=== PATIENT | male | born 1965 | race Caucasian/White ===

== ENCOUNTER 2019-07-07 18:32 | Emergency (ER) | payer BC, OTHER ==
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
[2019-07-07 19:18] LABS: BLOOD UREA NITROGEN,BUN 18 mg/dL (7.0-18.0); CARBON DIOXIDE,CO2 27.7 mmol/L (21.0-32.0); CHLORIDE,CL 103 mmol/L (98-107); GLUCOSE RANDOM 117 mg/dL (74-106); POTASSIUM,K 3.7 mmol/L (3.5-5.1); SODIUM,NA 139 mmol/L (136-148)
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
[2019-07-08 00:01] VITALS: BP 142/95; PULSE 80
== END 2019-07-07 20:40 | disposition home or self-care (01) ==
LOC: MW.ED 18:32
DX: S09.90XA Unspecified injury of head, initial encounter (principal); S00.81XA Abrasion of other part of head, initial encounter; S29.9XXA Unspecified injury of thorax, initial encounter; V43.92XA Unspecified car occupant injured in collision with other type car in traffic accident, initial encounter; Y92.410 Unspecified street and highway as the place of occurrence of the external cause
CPT/HCPCS: 70450; 70450-26; 71101-26-LT; 71101-LT; 72125; 72125-26; 80053; 81003; 84484; 85025; 85610; 93005; 99284-25

== ENCOUNTER 2019-07-10 12:22 | Emergency (ER) | payer OTHER, BC ==
[2019-07-10] MEDS ORDERED: Ketorolac 60 MG/2 ML SDV IM ONE (12:32)
[2019-07-10] MEDS ORDERED: Ketorolac 30 MG/ML SDV IVPUSH ONE (12:33)
[2019-07-10] MEDS ORDERED: Cyclobenzaprine 10 MG Tab PO ONE (12:33)
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
[2019-07-10] MEDS ORDERED: Sodium Chloride 0.9% 1,000 ML IV ONE (12:42)
--- NOTE | 2019-07-10 14:07 | CT ---
CT chest Technique: Multiple axial sections were obtained from above the lung apices inferiorly through the lung bases. Intravenous contrast was utilized. Comparison: No prior chest imaging. Findings: Aorta shows mild atherosclerotic calcification without aneurysm. Mediastinum and hilar regions show no adenopathy or mass. No axillary adenopathy is seen. Minimal coronary artery calcification is seen. No pericardial thickening is seen. Small portion of the visualized abdominal structures show several small calcified gallstones. Slight atelectasis is seen posteriorly within the left lung base. Minimal atelectasis or scarring within the right base. Lungs otherwise are clear. No acute parenchymal change is seen. Previous lower cervical spine surgery is noted. No acute osseous finding is appreciated. Impression: 1. Small calcified gallstones. 2. Mild bibasilar atelectasis. 3. Other findings believed to be incidental. Nothing acute is seen. Diagnostic code #2 This report was dictated in [place] Standard Time MTDD
[2019-07-10 16:49] VITALS: BP 167/83; PULSE 71
[2019-07-10] MEDS ORDERED: Iopamidol 755 MG/ML 500 ML Multipack Bottle IVPUSH STA (18:20)
== END 2019-07-10 14:31 | disposition home or self-care (01) ==
LOC: MW.ED 12:22
DX: R07.89 Other chest pain (principal); I10 Essential (primary) hypertension; E11.9 Type 2 diabetes mellitus without complications; E78.00 Pure hypercholesterolemia, unspecified; F17.210 Nicotine dependence, cigarettes, uncomplicated; Z79.899 Other long term (current) drug therapy; Z79.84 Long term (current) use of oral hypoglycemic drugs; V69.40 Driver of heavy transport vehicle injured in collision with unspecified motor vehicles in traffic accident
CPT/HCPCS: 71260; 93005; 96361; 96374; 99285; A9270; J1885; J7040; Q9967; 99284; J7030

== ENCOUNTER 2019-11-10 01:08 | Emergency (ER) | payer OTHER, BC ==
[2019-11-10 01:35] VITALS: BP 128/73; PULSE 81
[2019-11-10] MEDS ORDERED: Ketorolac 30 MG/ML SDV IM ONE (01:36)
[2019-11-10] MEDS ORDERED: Cyclobenzaprine 10 MG Tab PO ONE (01:36)
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
== END 2019-11-10 03:05 | disposition home or self-care (01) ==
LOC: MW.ED 01:08
DX: M54.5 Low back pain (principal); I10 Essential (primary) hypertension; E11.9 Type 2 diabetes mellitus without complications; E78.00 Pure hypercholesterolemia, unspecified; Z79.84 Long term (current) use of oral hypoglycemic drugs; Z79.899 Other long term (current) drug therapy
CPT/HCPCS: 96372; 99283; A9270-GY; J1885